=== PATIENT | female | born 1980 | race African-American/Black ===

== ENCOUNTER 2018-09-19 16:21 | Inpatient (IN) | payer OTHER ==
[~2018-09-19] VITALS: Ht 162.6 cm; Wt 76.7 kg
--- NOTE | 2018-09-19 16:24 | Emergency Room Report ---
History of Present Illness General Chief Complaint: Chest Pain Source: Patient, EMS Present Illness HPI Patient is a 38-year-old female brought in by EMS after increased pain to her [facility] site. Patient a prior history of end-stage renal disease and is currently residing at a facility. Patient had patient was sent in from facility. Previous history of end-stage renal disease. Patient reports being an uric. Allergies: Coded Allergies: No Known Allergies (Unverified , 09/19/18) Patient History Past Medical History: see triage record Reviewed Nursing Documentation: PMH: Agreed; PSxH: Agreed Review of Systems All Other Systems: negative except mentioned in HPI Physical Exam Vital Signs Date Time Temp Pulse Resp B/P (MAP) Pulse Ox O2 Delivery O2 Flow Rate FiO2 09/19/18 16:17 98.6 86 18 160/82 98 Room Air Sp02 EP Interpretation: reviewed, normal General Appearance: normal inspection, well appearing, no apparent distress, alert, GCS 15 Head: atraumatic ENT: normal ENT inspection, hearing grossly normal, normal voice Neck: normal inspection, full range of motion, supple, no bony tend Respiratory: normal inspection, lungs clear, normal breath sounds, no respiratory distress, no retraction, no wheezing Cardiovascular #1: regular rate, rhythm, no edema Gastrointestinal: normal inspection, normal bowel sounds, non tender, soft, no guarding, no hernia Genitourinary: no CVA tenderness Musculoskeletal: normal inspection, back normal, normal range of motion Neurologic: normal inspection, alert, oriented x3, responsive, programming specialist III-XII nml as tested, speech normal Psychiatric: normal inspection, judgement/insight normal, mood/affect normal Skin: normal inspection, normal color, no rash Medical Decision Making Diagnostic Impression: Primary Impression: Chest pain Additional Impression: ESRD (end stage renal disease) ER Course Patient presented for chest pain. Differential diagnosis included but was not limited to acute coronary syndrome, pulmonary embolism, pneumonia, aortic dissection, shingles, pneumothorax, aortic dissection, esophageal rupture, pericarditis. EKG interpreted by me showed normal sinus rhythm with a rate of [address] or T wave changes.Low voltage. [facility] for inpatient management due to covering physician Labs Test 09/19/18 17:00 09/19/18 18:15 White Blood Count 9.9 K/UL (4.8-10.8) Red Blood Count 4.31 M/UL (4.20-5.40) Hemoglobin 11.3 G/DL (12.0-16.0) Hematocrit 36.0 % (37.0-47.0) Mean Corpuscular Volume 84 FL (80-99) Mean Corpuscular Hemoglobin 26.2 PG (27.0-31.0) Mean Corpuscular Hemoglobin Concent 31.3 G/DL (32.0-36.0) Red Cell Distribution Width 16.3 % (11.6-14.8) Platelet Count 179 K/UL (150-450) Mean Platelet Volume 7.0 FL (6.5-10.1) Neutrophils (%) (Auto) 76.5 % (45.0-75.0) Lymphocytes (%) (Auto) 10.4 % (20.0-45.0) Monocytes (%) (Auto) 6.8 % (1.0-10.0) Eosinophils (%) (Auto) 2.0 % (0.0-3.0) Basophils (%) (Auto) 4.3 % (0.0-2.0) Sodium Level 132 MMOL/L (136-145) Potassium Level 5.0 MMOL/L (3.5-5.1) Chloride Level 96 MMOL/L (98-107) Carbon Dioxide Level 23 MMOL/L (21-32) Anion Gap 14 mmol/L (5-15) Blood Urea Nitrogen 58 mg/dL (7-18) Creatinine 5.9 MG/DL (0.55-1.30) Estimat Glomerular Filtration Rate 9.6 mL/min (>60) Glucose Level 285 MG/DL (74-106) Calcium Level 9.3 MG/DL (8.5-10.1) Total Bilirubin 0.9 MG/DL (0.2-1.0) Aspartate Amino Transf (AST/SGOT) 32 U/L (15-37) Alanine Aminotransferase (ALT/SGPT) 45 U/L (12-78) Alkaline Phosphatase 275 U/L (46-116) Total Creatine Kinase 41 U/L (26-308) Creatine Kinase MB 1.9 NG/ML (0.0-3.6) Creatine Kinase MB Relative Index 4.6 Troponin I 0.000 ng/mL (0.000-0.056) Total Protein 8.5 G/DL (6.4-8.2) Albumin 3.3 G/DL (3.4-5.0) Globulin 5.2 g/dL Albumin/Globulin Ratio 0.6 (1.0-2.7) EKG Diagnostic Results Rate: normal Rhythm: NSR ST Segments: no acute changes Last Vital Signs Date Time Temp Pulse Resp B/P (MAP) Pulse Ox O2 Delivery O2 Flow Rate FiO2 09/19/18 16:17 98.6 86 18 160/82 98 Room Air Status: unchanged Disposition: ADMITTED INPATIENT Valentin Valenzuela MD Sep 19, 2018 16:24
[2018-09-19 16:30] VITALS: BP 132/76
--- NOTE | 2018-09-19 16:30 | NUR ---
ED Nurse Note: Pt brought in to ER by ambulance from [facility] due to Lt chest pain related to dialysis catheter. pt aao x4 and calm and cooperative but drowsy. Pt has dialysis catheter on Lt upper chest. pt gets dialysis every ,, and last dialysis was Thursday. pt reported that catheter site pain radiates to Rt breast. skin clean and intact but dry.
[2018-09-19] MEDS ORDERED: BENADRYL25 M3 PO (17:04)
[2018-09-19] MEDS ORDERED: ELIQUIS5 MG PO (17:04)
[2018-09-19] MEDS ORDERED: NORVASC10 MG ORAL (17:04)
[2018-09-19] MEDS ORDERED: DOCUSATE SODIU100 M2 ORAL (17:04)
[2018-09-19] MEDS ORDERED: ACETAMINOPHEN-1 EAC1 ORAL (17:04)
[2018-09-19] MEDS ORDERED: GLUCAGON W/DILUE1 MG PO (17:04)
[2018-09-19] MEDS ORDERED: AMBIEN10 M1 ORAL (17:04)
[2018-09-19] MEDS ORDERED: LEVEMIR FL100 UNIT/2 SQ (17:04)
[2018-09-19] MEDS ORDERED: MINOXIDIL10 MG PO (17:04)
[2018-09-19] MEDS ORDERED: KEPPRA500 M4 ORAL (17:04)
[2018-09-19] MEDS ORDERED: LEVOTHYROXINE175 MCG ORAL (17:04)
[2018-09-19] MEDS ORDERED: PEPCID AC20 M2 PO (17:04)
[2018-09-19] MEDS ORDERED: NORMODYNE200 MG ORAL (17:04)
[2018-09-19] MEDS ORDERED: COMPAZINE10 M2 PO (17:04)
[2018-09-19] MEDS ORDERED: NORCO 10-325 T1 EACH ORAL (17:04)
[2018-09-19] MEDS ORDERED: SERTRALINE HCL50 MG ORAL (17:04)
[2018-09-19] MEDS ORDERED: TYLENOL325 MG ORAL (17:04)
[2018-09-19] MEDS ORDERED: APRESOLINE50 MG ORAL (17:04)
[2018-09-19] MEDS ORDERED: VITAMIN C PO (17:04)
[2018-09-19] MEDS ORDERED: DIOVAN80 MG ORAL (17:04)
[2018-09-19 17:20] LABS: BASOPHILS % (AUTO) 4.3 % (0.0-2.0); HEMOGLOBIN 11.3 G/DL (12.0-16.0); LYMPHOCYTES % (AUTO) 10.4 % (20.0-45.0); MEAN CORPUSCULAR VOLUME 84 FL (80-99); MONOCYTES % (AUTO) 6.8 % (1.0-10.0); NEUTROPHILS % (AUTO) 76.5 % (45.0-75.0); PLATELET COUNT 179 K/UL (150-450); RED BLOOD COUNT 4.31 M/UL (4.20-5.40); RED CELL DISTRIBUTION WIDTH 16.3 % (11.6-14.8); WHITE BLOOD COUNT 9.9 K/UL (4.8-10.8)
[2018-09-19 17:30] VITALS: BP 165/81
[2018-09-19] MEDS ORDERED: BENADRYL50 MG ORAL (18:11)
[2018-09-19] MEDS ORDERED: DULCOLAX10 MG RC (18:11)
[2018-09-19] MEDS ORDERED: PRO-STAT LIQUID30 ML ORAL (18:17)
[2018-09-19] MEDS ORDERED: SYNTHROID150 MCG ORAL (18:17)
[2018-09-19] MEDS ORDERED: NEPHROVITE1 TAB ORAL (18:17)
[2018-09-19] MEDS ORDERED: TYLENOL EXTRA500 MG ORAL (18:23)
[2018-09-19] MEDS ORDERED: VITAMIN C500 M1 ORAL (18:24)
[2018-09-19] MEDS ORDERED: DIOVAN160 MG ORAL (18:24)
[2018-09-19 18:30] VITALS: BP 150/86
--- NOTE | 2018-09-19 19:06 | NUR ---
HAND-OFF: Report given to LEATHA Perez. no orders to carry at this time.
[2018-09-19 19:18] LABS: ANION GAP 14 mmol/L (5-15); BLOOD UREA NITROGEN 58 mg/dL (7-18); CALCIUM 9.3 MG/DL (8.5-10.1); CARBON DIOXIDE 23 MMOL/L (21-32); CHLORIDE 96 MMOL/L (98-107); CREATININE 5.9 MG/DL (0.55-1.30); SODIUM 132 MMOL/L (136-145)
[2018-09-19 19:31] LABS: ALANINE AMINOTRANSFERASE 45 U/L (12-78); ALBUMIN 3.3 G/DL (3.4-5.0); ALBUMIN/GLOBULIN RATIO 0.6 (1.0-2.7); ALKALINE PHOSPHATASE 275 U/L (46-116); ASPARTATE AMINO TRANSFERASE 32 U/L (15-37); BILIRUBIN,TOTAL 0.9 MG/DL (0.2-1.0); CKMB 1.9 NG/ML (0.0-3.6); CREATINE KINASE 41 U/L (26-308)
--- NOTE | 2018-09-19 20:00 | NUR ---
ER Nurse Note: Pt a&ox4, VSS, no signs of distress. Pt is on 2L NC with 98%. Pt frequently takes off NC and O2 at 92% to 94%. Pt has dialysis cath on left upper chest; dressed and covered prior admission. Pt able to turn, skin intact. All orders completed per ERMD orders. All safety measures met; will continue to montior.
[2018-09-19 21:20] VITALS: BP 148/74
--- NOTE | 2018-09-19 21:53 | NUR ---
ER Nurse Note: Tried to give report twice; was told that LEATHA Cummings will call back. Gave report to LEATHA Cummings in tele for continuity of care. Pt a&ox4, VSS, no signs of distress. Left with all belonings.
[2018-09-19 22:30] VITALS: BP 158/79
--- NOTE | 2018-09-19 22:56 | NUR ---
NURSE NOTES: Called and left a message with on-call MD, Arline Figueroa, regarding admission orders. Awaiting call back.
[2018-09-19] MEDS ORDERED: Glucagon 1mg Inj SUBQ PRN (23:15)
[2018-09-19] MEDS ORDERED: Zolpidem 5mg tab ORAL PRN (23:15)
[2018-09-19] MEDS ORDERED: Tylenol #3 tab (300mg/30mg) ORAL PRN (23:15)
[2018-09-19] MEDS ORDERED: HYDROcodone/Acetamin 10/325 tab ORAL PRN (23:15)
[2018-09-19] MEDS ORDERED: Acetaminophen 500mg (ES) tab ORAL PRN (23:15)
[2018-09-19] MEDS: Morphine Sulfate 2mg/ml Inj(IV/IM USE ONLY) IVP PRN (23:43)
[2018-09-20] VITALS: BP 157/78
--- NOTE | 2018-09-20 04:09 | NUR ---
NURSE NOTES: Called and left a message with Dr. Figueroa regarding pts request for cough meds. Awaiting call back.
[2018-09-20] MEDS: Morphine Sulfate 2mg/ml Inj(IV/IM USE ONLY) IVP PRN ×2 (05:45→21:00)
[2018-09-20] MEDS ORDERED: Tylenol #3 tab (300mg/30mg) ORAL PRN (06:30)
[2018-09-20] MEDS ORDERED: Morphine Sulfate 2mg/ml Inj(IV/IM USE ONLY) IVP PRN (06:30)
--- NOTE | 2018-09-20 07:47 | NUR ---
HAND-OFF: Report given to LEATHA Riley. Pt stable.
--- NOTE | 2018-09-20 07:48 | NUR ---
NURSE NOTES: Pt received from LEATHA Cummings alert and oriented x3 with no acute s/s of distress. IV site asymptomatic and patent. Bed in lowest position, call light and belongings within reach.
[2018-09-20 08:00] VITALS: BP 146/73
--- NOTE | 2018-09-20 08:56 | History and Physical ---
History of Present Illness General Date patient seen: Sep 20, 2018 Reason for Hospitalization: cough, body pain, s/p cva left weakness Present Illness Allergies: Coded Allergies: No Known Allergies (Unverified , 09/19/18) Medication History Scheduled Amino Acids/Protein Hydrolys (Pro-Stat Liquid), 30 ML ORAL TWICE A DAY, ( Reported) Amlodipine Besylate (Norvasc), 10 MG ORAL DAILY, (Reported) Apixaban (Eliquis), 5 MG PO BID, (Reported) Ascorbic Acid* (Vitamin C*), 500 MG ORAL DAILY, (Reported) Docusate Sodium (Docusate Sodium), 100 MG ORAL DAILY, (Reported) Famotidine (Pepcid Ac), 20 MG PO QOD, (Reported) Hydralazine HCl (Hydralazine HCl), 50 MG ORAL TID, (Reported) Insulin Detemir (Levemir Flextouch), 10 UNITS SQ DAILY, (Reported) Labetalol HCl (Labetalol HCl), 200 MG ORAL BID, (Reported) Levetiracetam (Keppra), 500 MG ORAL BID, (Reported) Levothyroxine Sodium* (Synthroid*), 150 MCG ORAL BEFORE BREAKFAST, (Reported) Minoxidil* (Loniten*), 10 MG PO BID, (Reported) Sertraline Hcl* (Zoloft*), 50 MG ORAL DAILY, (Reported) Valsartan (Diovan), 160 MG ORAL DAILY, (Reported) Vitamin B Cmplx/Vit C/Folic AC (Nephro-Kamron Tablet), 1 TAB ORAL DAILY, (Reported ) Scheduled PRN Acetaminophen (Tylenol), 650 MG ORAL Q6H PRN for Mild Pain (Pain Scale 1-3), ( Reported) Acetaminophen With Codeine (T#3) (Tylenol #3 Tab*), 1 TAB ORAL Q4H PRN for Severe Pain (Pain Scale 7-10), (Reported) Acetaminophen* (Tylenol Extra Strength*), 1,000 MG ORAL Q6H PRN for Moderate Pain (Pain Scale 4-6), (Reported) Bisacodyl (Dulcolax), 10 MG RC DAILY PRN for Constipation, (Reported) Diphenhydramine HCl (Diphenhydramine HCl), 50 MG ORAL Q6H PRN for Itching, ( Reported) Glucagon (Glucagen), 1 MG PO ONCE PRN for hypoglycemia, (Reported) Hydrocodone Bit/Acetaminophen 10-325* (Largo 10-325*), 1 TAB ORAL Q6H PRN for Severe Pain (Pain Scale 7-10), (Reported) Zolpidem Tartrate* (Ambien*), 10 MG ORAL HS PRN for Insomnia, (Reported) Discontinued Medications Diphenhydramine HCl (Benadryl), 50 MG PO, (Reported) Discontinued Reason: Prescription changed Prochlorperazine Maleate (Compazine), 10 MG PO, (Reported) Discontinued Reason: MD discontinued med Medications Narrative 38 y/o AA female with ESRD, sent to er for not feeling well, c/o new cough, pain at permacath site, total body pain. Pt. has been on vanco in HD unit for ? reason. Today she feels weak, crying from pain, says has severe non relenting cough, weakness fifi in left side x 1 year after told had cva. She is planned to have HD this am per her regular schedule Patient History History Provided By: Patient Healthcare decision maker Aunt Resuscitation status Full Code Advanced Directive on File Review of Systems Constitutional: Reports: malaise, weakness Eye: Reports: tearing ENT: Denies: no symptoms, see HPI, ear pain, ear discharge, nose pain, nose congestion, throat pain, throat swelling, mouth pain, hearing loss, nasal discharge, other Respiratory: Reports: cough Cardiovascular: Denies: no symptoms, see HPI, chest pain, edema, palpitations, syncope, PND, other Gastrointestinal: Denies: no symptoms, see HPI, abdominal pain, constipation, diarrhea, nausea, vomiting, melena, hematemesis, other Musculoskeletal: Reports: back pain, joint pain Skin: Denies: no symptoms, see HPI, rash, change in color, change in hair/nails , dryness, lesions, other Psychiatric: Denies: no symptoms, see HPI, prior hx, anxiety, depressed feelings, emotional problems, SI, HI, hallucinations, other Neurological: Denies: no symptoms, see HPI, headache, numbness, paresthesia, seizure, tingling, tremors, focal weakness, syncope, dizziness, other Endocrine: Denies: no symptoms, see HPI, excessive sweating, flushing, intolerance to temperature, increased thirst, increased urine, unexplained weight loss, other Physical Exam General Appearance: WD/WN, alert, mild distress, obese Lines, tubes and drains: dialysis access HEENT: normocephalic, atraumatic, anicteric, mucous membranes moist, PERRL, carotid(s) normal Neck: non-tender Respiratory/Chest: lungs clear Cardiovascular/Chest: normal peripheral pulses, normal rate Abdomen: normal bowel sounds, decreased bowel sounds Neurologic: technical services specialist II-XII grossly normal, alert, motor weakness - left UE Musculoskeletal: normal muscle bulk Last 24 Hour Vital Signs Date Time Temp Pulse Resp B/P (MAP) Pulse Ox O2 Delivery O2 Flow Rate FiO2 09/20/18 04:00 85 09/20/18 00:49 Nasal Cannula 2.0 09/20/18 00:00 78 09/20/18 00:00 98.1 80 18 157/78 (104) 98 09/19/18 22:30 97.9 81 18 158/79 (105) 97 09/19/18 22:00 98.1 78 18 148/74 98 Room Air 2.0 09/19/18 21:20 98.1 78 18 148/74 98 Room Air 09/19/18 18:30 98.0 77 15 150/86 95 Room Air 09/19/18 17:30 98.4 79 17 165/81 97 Nasal Cannula 2.0 09/19/18 16:30 86 18 Room Air 09/19/18 16:30 98.6 81 14 132/76 95 Nasal Cannula 2.0 09/19/18 16:17 98.6 86 18 160/82 98 Room Air Intake and Output 09/19/18 09/20/18 19:00 07:00 Intake Total 0 ml Output Total 0 ml Balance 0 ml 0 ml Intake Oral 0 ml Output Urine Total 0 ml Laboratory Tests Test 09/19/18 17:00 09/19/18 18:15 09/20/18 03:50 White Blood Count 9.9 K/UL (4.8-10.8) Red Blood Count 4.31 M/UL (4.20-5.40) Hemoglobin 11.3 G/DL (12.0-16.0) L Hematocrit 36.0 % (37.0-47.0) L Mean Corpuscular Volume 84 FL (80-99) Mean Corpuscular Hemoglobin 26.2 PG (27.0-31.0) L Mean Corpuscular Hemoglobin Concent 31.3 G/DL (32.0-36.0) L Red Cell Distribution Width 16.3 % (11.6-14.8) H Platelet Count 179 K/UL (150-450) Mean Platelet Volume 7.0 FL (6.5-10.1) Neutrophils (%) (Auto) 76.5 % (45.0-75.0) H Lymphocytes (%) (Auto) 10.4 % (20.0-45.0) L Monocytes (%) (Auto) 6.8 % (1.0-10.0) Eosinophils (%) (Auto) 2.0 % (0.0-3.0) Basophils (%) (Auto) 4.3 % (0.0-2.0) H Sodium Level 132 MMOL/L (136-145) L Potassium Level 5.0 MMOL/L (3.5-5.1) Chloride Level 96 MMOL/L (98-107) L Carbon Dioxide Level 23 MMOL/L (21-32) Anion Gap 14 mmol/L (5-15) Blood Urea Nitrogen 58 mg/dL (7-18) H Creatinine 5.9 MG/DL (0.55-1.30) H Estimat Glomerular Filtration Rate 9.6 mL/min (>60) Glucose Level 285 MG/DL (74-106) H Calcium Level 9.3 MG/DL (8.5-10.1) Total Bilirubin 0.9 MG/DL (0.2-1.0) Aspartate Amino Transf (AST/SGOT) 32 U/L (15-37) Alanine Aminotransferase (ALT/SGPT) 45 U/L (12-78) Alkaline Phosphatase 275 U/L (46-116) H Total Creatine Kinase 41 U/L (26-308) Creatine Kinase MB 1.9 NG/ML (0.0-3.6) Creatine Kinase MB Relative Index 4.6 Troponin I 0.000 ng/mL (0.000-0.056) 0.000 ng/mL (0.000-0.056) Total Protein 8.5 G/DL (6.4-8.2) H Albumin 3.3 G/DL (3.4-5.0) L Globulin 5.2 g/dL Albumin/Globulin Ratio 0.6 (1.0-2.7) L Height (Feet): 5 Height (Inches): 4.00 Weight (Pounds): 155 Medications Current Medications Medications (Trade) Dose Ordered Sig/Lior Route PRN Reason Start Time Stop Time Status Last Admin Dose Admin Acetaminophen (Tylenol) 650 mg Q6H PRN ORAL Headache/T>100.5 09/20/18 06:45 10/19/18 23:14 Acetaminophen/ Codeine Phosphate (Tylenol #3) 1 tab Q4H PRN ORAL Mild Pain (Pain Scale 1-3) 09/20/18 06:30 09/26/18 23:14 Acetaminophen/ Hydrocodone Bitart (Largo 10/325) 1 tab Q6H PRN ORAL Moderate Pain (Pain Scale 4-6) 09/19/18 23:15 09/26/18 23:14 Amlodipine Besylate (Norvasc) 10 mg DAILY ORAL 09/20/18 09:00 10/20/18 08:59 Apixaban (Eliquis) 5 mg BID ORAL 09/20/18 09:00 10/20/18 08:59 Ascorbic Acid (Vitamin C) 500 mg DAILY ORAL 09/20/18 09:00 10/20/18 08:59 Bisacodyl (Dulcolax) 10 mg DAILY PRN RECTAL Constipation 09/19/18 23:15 10/19/18 23:14 Diphenhydramine HCl (Benadryl) 50 mg Q6H PRN ORAL Itching 09/19/18 23:15 10/19/18 23:14 09/19/18 23:43 Docusate Sodium (Colace) 100 mg DAILY ORAL 09/20/18 09:00 10/20/18 08:59 Famotidine (Pepcid) 20 mg QOD ORAL 09/21/18 09:00 10/21/18 08:59 Glucagon (Glucagon) 1 mg NEEDED PRN SUBQ hypoglycemia 09/19/18 23:15 10/19/18 23:14 Hydralazine HCl (Apresoline) 50 mg TID ORAL 09/20/18 09:00 10/20/18 08:59 Insulin Detemir (Levemir) 10 units DAILY SUBQ 09/20/18 09:00 10/20/18 08:59 Labetalol HCl (Normodyne) 200 mg BID ORAL 09/20/18 09:00 10/20/18 08:59 Levetiracetam (Keppra) 500 mg BID ORAL 09/20/18 09:00 10/20/18 08:59 Levothyroxine Sodium (Synthroid) 150 mcg BEFORE BREAKFAST ORAL 09/20/18 06:30 10/20/18 06:29 09/20/18 05:45 Minoxidil (Loniten) 10 mg BID ORAL 09/20/18 09:00 10/20/18 08:59 Morphine Sulfate (Morphine Sulfate) 2 mg Q4H PRN IVP Severe Pain (Pain Scale 7-10) 09/20/18 06:30 09/26/18 23:14 Sertraline HCl (Zoloft) 50 mg DAILY ORAL 09/20/18 09:00 10/20/18 08:59 Vitamin B Complex/ Vit C/Folic Acid (Nephrovite) 1 tab DAILY ORAL 09/20/18 09:00 10/20/18 08:59 Zolpidem Tartrate (Ambien) 5 mg BEDTIME PRN ORAL Insomnia 09/19/18 23:15 09/26/18 23:14 Assessment/Plan Problem List: (1) HTN (hypertension) Assessment & Plan: - restart bp meds, hd to get uf and watch ICD Codes: I10 - Essential (primary) hypertension SNOMED: 21404604 (2) Cough Assessment & Plan: -cxr now, Robitussin for now, ? if has pneumonia with nl wbc after given vanco on thursday. ICD Codes: R05 - Cough SNOMED: 65201256 (3) DM2 (diabetes mellitus, type 2) Assessment & Plan: -follow bs with ssi ICD Codes: E11.9 - Type 2 diabetes mellitus without complications SNOMED: 07112442 (4) Total body pain Assessment & Plan: -resume norco, poss has djd and ? post cva, will get records and speak to family ICD Codes: R52 - Pain, unspecified SNOMED: 749186501 (5) Anemia Assessment & Plan: -sec to ESRD, plan epogen prn with hd ICD Codes: D64.9 - Anemia, unspecified SNOMED: 208734053 (6) ESRD (end stage renal disease) Assessment & Plan: - plan hd m/w/f -watch volume lytes -adjust meds to lower crcl ICD Codes: N18.6 - End stage renal disease SNOMED: 06198365 Status: Jake Grey M.D. Sep 20, 2018 08:56
[2018-09-20] MEDS ORDERED: guaiFENesin 100mg/5ml Liq ud ORAL PRN (09:00)
[2018-09-20] MEDS: Nephrovite tab (Rena-Vite) ORAL SCH (09:26)
[2018-09-20] MEDS: Docusate 100mg cap ORAL SCH (09:27)
[2018-09-20] MEDS: Sertraline 50mg tab ORAL SCH (09:27)
[2018-09-20] MEDS: Ascorbic Acid 500mg tab ORAL SCH (09:27)
[2018-09-20] MEDS: Minoxidil 10mg tab ORAL SCH ×2 (09:27→17:11)
[2018-09-20] MEDS: HydrALAZINE 50mg tab ORAL SCH ×3 (09:28→17:10)
[2018-09-20] MEDS: Eliquis 2.5mg tablet ORAL SCH ×2 (09:28→17:10)
[2018-09-20] MEDS: Labetalol 200mg tab ORAL SCH ×2 (09:28→17:11)
[2018-09-20] MEDS: Levemir Flexpen SUBQ SCH (09:33)
--- NOTE | 2018-09-20 09:54 | NUR ---
NURSE NOTES: Per Dr. Mullins, pt is scheduled for HD today at 04/08 in the AM with [facility]. RN spoke with Gel from [facility] to confirm HD, currently awaiting call back from HD nurse.
--- NOTE | 2018-09-20 09:59 | NUR ---
RADIOLOGY DEPT., CHEST X-RAY PERFORMED ON ADMIT FROM ER.-P.DYE
[2018-09-20 12:00] VITALS: BP 122/54
--- NOTE | 2018-09-20 12:16 | Diagnostic Imaging Report ---
Indication: Chest pain Technique: One view of the chest Comparison: none Findings: Left chest tunneled dialysis catheter is demonstrated. There is evidence of a large left pleural effusion. There is bilateral interstitial and airspace edema. The heart size is difficult to assess, probably enlarged. Left axillary vascular stents are noted Impression: Cardiomegaly. Probable congestive heart failure and large left pleural effusion This agrees with the preliminary interpretation provided overnight by [facility] teleradiology service.
--- NOTE | 2018-09-20 13:39 | NUR ---
*-* INSURANCE *-* ALL CLINICALS HAVE BEEN FAXED [facility] [phone] Fax for Clinicals [phone] Fax for Discharge Summary *-* BAR NOTES ; COURT STENOGRAPHER ZACK Olson AND HE GAVE AUTH TO ADMIT THE PT AUTH# [id number] FAX F/S AND ED NOTES [phone]
--- NOTE | 2018-09-20 15:37 | NUR ---
CASE MANAGEMENT:REVIEW 38 YR OLD FEMALE BIBA FROM [facility] CC: LT CHEST PAIN WHERE DIALYSIS ACCESS IS LOCATED SI:CHEST PAIN 98.6 86 18 160/82 98% ON RA TROPONIN(-) BUN+58 CR+5.9 IS: CHEST XRAY : TO TELEMETRY IS: IV MORPHINE Q4HRS PRN LEVAQUIN PO QD ELIQUIS PO BID MINOXIDIL PO BID KEPPRA PO BID LABETALOL PO BID HYDRALAZINE PO TID NORVASC PO QD
[2018-09-20 16:00] VITALS: BP 124/61
--- NOTE | 2018-09-20 16:45 | NUR ---
NURSE NOTES: Endorsed to Dr. Mullins that pt is asking for Benadryl IVP PRN since her PO med does not work effectively, per the patient. Per Dr. Mullins - Benadryl 25 mg IVP PRN q6h for itching. Will carry out orders.
[2018-09-20] MEDS: DiphenhydrAMINE 50mg/ml Inj IVP PRN (17:09)
--- NOTE | 2018-09-20 19:15 | NUR ---
HAND-OFF: Report given to LEATHA Del Real. No acute s/s of distress.
--- NOTE | 2018-09-20 19:30 | NUR ---
NURSE NOTES: Report received from Yokasta Chaudhari RN. Pt is resting in bed in stable condition. Pt is awake, alert, and oriented x4. Pt is on 2L O2 via nasal cannula and breathing is even and unlabored. No acute distress noted. IV site is L EJ #18g and is asymptomatic, patent, and intact. Bed is in lowest position with brake engaged, side rails up x3, and bed alarm on. Call light and side table are placed within reach. Will continue to monitor.
--- NOTE | 2018-09-20 19:39 | Cardiology Report ---
APPROVED REPORT EKG Measurement Heart [id number] Normal sinus rhythm Rightward axis Low voltage QRS Borderline ECG
[2018-09-20 20:00] VITALS: BP 124/57
--- NOTE | 2018-09-20 21:11 | NUR ---
NURSE NOTES: Pt's blood sugar noted to be 479. MD Mullins notified. Per , place order for novolog moderate sliding scale coverage per protocol. Orders noted and carried out.
[2018-09-20] MEDS: NovoLOG Insulin Flexpen SUBQ SCH (21:52)
[2018-09-21] VITALS: BP 122/59
[2018-09-21] MEDS: DiphenhydrAMINE 50mg/ml Inj IVP PRN ×2 (01:12→09:01)
[2018-09-21 04:00] VITALS: BP 122/63
[2018-09-21] MEDS: NovoLOG Insulin Flexpen SUBQ SCH ×2 (05:44→11:30)
--- NOTE | 2018-09-21 06:04 | NUR ---
NURSE NOTES: Pt refusing labs this AM. Will have forestry farm laborer attempt again at a later time.
[2018-09-21] MEDS ORDERED: NovoLOG Insulin Flexpen SUBQ SCH (06:30)
--- NOTE | 2018-09-21 07:21 | NUR ---
HAND-OFF: Report given to Yokasta Chaudhari RN. Pt is resting in bed in stable condition. No acute distress noted. Endorsed plan of care.
--- NOTE | 2018-09-21 07:22 | NUR ---
NURSE NOTES: Pt received from LEATHA Del Real alert and oriented x4 with no acute s/s of distress. IV site asymptomatic and patent, on saline lock. Bed in lowest position, call light and belongings within reach.
[2018-09-21 08:00] VITALS: BP 117/65
[2018-09-21] MEDS: Sertraline 50mg tab ORAL SCH (08:41)
[2018-09-21] MEDS: Nephrovite tab (Rena-Vite) ORAL SCH (08:41)
[2018-09-21] MEDS: Ascorbic Acid 500mg tab ORAL SCH (08:41)
[2018-09-21] MEDS: Eliquis 2.5mg tablet ORAL SCH (08:41)
[2018-09-21] MEDS: Labetalol 200mg tab ORAL SCH (08:42)
[2018-09-21] MEDS: Minoxidil 10mg tab ORAL SCH (08:42)
[2018-09-21] MEDS: Docusate 100mg cap ORAL SCH (08:42)
[2018-09-21] MEDS: HydrALAZINE 50mg tab ORAL SCH ×2 (08:42→13:00)
[2018-09-21] MEDS: Levemir Flexpen SUBQ SCH (08:52)
[2018-09-21] MEDS: Morphine Sulfate 2mg/ml Inj(IV/IM USE ONLY) IVP PRN (09:01)
--- NOTE | 2018-09-21 10:17 | NUR ---
DISCHARGE PLANNING DISCHARGE ORDER NOTED FAXED CLINICALS TO [facility] T: [phone] AWAIT ACCEPTANCE AND ASSIGNED ROOM NUMBER
[2018-09-21 10:22] LABS: BASOPHILS % (AUTO) 2.5 % (0.0-2.0); EOSINOPHILS % (AUTO) 10.6 % (0.0-3.0); HEMATOCRIT 35.6 % (37.0-47.0); HEMOGLOBIN 10.6 G/DL (12.0-16.0); LYMPHOCYTES % (AUTO) 7.3 % (20.0-45.0); MEAN CORPUSCULAR VOLUME 84 FL (80-99); MONOCYTES % (AUTO) 9.4 % (1.0-10.0); NEUTROPHILS % (AUTO) 70.2 % (45.0-75.0); PLATELET COUNT 234 K/UL (150-450); RED BLOOD COUNT 4.23 M/UL (4.20-5.40); RED CELL DISTRIBUTION WIDTH 16.5 % (11.6-14.8); WHITE BLOOD COUNT 9.2 K/UL (4.8-10.8)
[2018-09-21 10:48] LABS: ANION GAP 11 mmol/L (5-15); BLOOD UREA NITROGEN 49 mg/dL (7-18); CALCIUM 8.7 MG/DL (8.5-10.1); CARBON DIOXIDE 26 MMOL/L (21-32); CHLORIDE 96 MMOL/L (98-107); CREATININE 5.8 MG/DL (0.55-1.30); PHOSPHORUS 4.1 MG/DL (2.5-4.9); POTASSIUM 4.6 MMOL/L (3.5-5.1); SODIUM 132 MMOL/L (136-145)
--- NOTE | 2018-09-21 11:40 | NUR ---
DISCHARGE PLANNED PATIENT WILL RETURN TO [facility] ROOM 61 SKILLED T:[phone] FOR NURSE TO NURSE REPORT [facility] AUTH #[id number] [facility] HAS BEEN ARRANGED FOR [address] [employer]
[2018-09-21 12:00] VITALS: BP 101/50
--- NOTE | 2018-09-21 13:55 | NUR ---
NURSE NOTES: Pt discharged to SNF with SNF meds per Dr. Mullins's orders. RN gave report and endorsed discharge and medication information to Maria Eugenia from [facility] (Room 6A). IV site d/manuelito and wristband removed. Belongings signed by patient upon discharge. Pt left in safe condition - no wounds upon discharge. Pt has left permacath in upper chest for dialysis. Pt picked up by [facility] at 1355.
--- NOTE | 2018-09-21 14:49 | NUR ---
*-* INSURANCE *-* ALL CLINICALS AND REVIEWS HAVE BEEN FAXED TO: [facility] P- [phone] F- [phone]....
--- NOTE | 2018-09-23 09:48 | Discharge Summary ---
Discharge Summary Discharge Summary _ DATE OF ADMISSION: 09/19/2018 DATE OF DISCHARGE: 09/21/2018 DISCHARGED BY: Dr Mullins REASON FOR ADMISSION: 38 years old female with past medical history of end-stage renal disease, on hemodialysis, diabetes mellitus, status post CVA with left-sided weakness , [facility], brought due to cough and body pains for evaluation. Upon evaluation blood pressure was 160/82, otherwise vital signs were stable. Laboratory workup revealed no leukocytosis, hemoglobin 11.3, hematocrit 36. Sodium 132, potassium 5.0. BUN 58, creatinine 5.9, consistent with known history of end-stage renal disease. Glucose 285. Stable LFT. CK 41. Troponin negative. EKG revealed normal sinus rhythm, no acute ischemic changes. Albumin 3.3. Chest x-ray revealed cardiomegaly, possible congestive heart failure and left pleural effusion. Patient admitted to telemetry floor. HOSPITAL COURSE: Patient admitted to telemetry floor. Serial troponin were negative. EKG revealed normal sinus rhythm, no acute ischemic changes. Telemetry revealed no acute ischemic changes. Patient was ruled out for acute myocardial infarction. Supplemental oxygen was on board as needed to keep pulse oximetry above 92%. Pulmonary toilet provided as needed. Patient started on empiric antibiotic. Antitussive provided as needed. Chest x-ray revealed no evidence of acute cardiopulmonary pathology. Supportive care provided. Hemodialysis provided while in the hospital with close monitoring of volumes and renal parameters. Blood sugar was managed with long-acting insulin and sliding scale of short acting insulin was provided as needed. GI prophylaxis provided Blood pressure was managed with multiply antihypertensive medications, including calcium channel brooke, beta-brooke, hydralazine and minoxidil. Patient was continue on anticoagulation with Eliquis. Pain management was addressed, possible DJD . Pain was eventually controlled Seizure precaution maintained. Keppra continued. Hemoglobin and hematocrit were closely monitored with goal to keep hemoglobin above 7, remained at the baseline. Prior to discharge hemoglobin 10.6, hematocrit 35.6. Bowel regimen instituted. Supportive care provided. Patient remained afebrile, no leukocytosis, Stable hemodynamic status. Patient was stable for transfer back to [facility] for continuation of care FINAL DIAGNOSES: End-stage renal disease on hemodialysis Hypertension Cough Total body pain Diabetes mellitus type 2 Anemia DISCHARGE MEDICATIONS: See Medication Reconciliation list. DISCHARGE INSTRUCTIONS: [facility] Follow up with medical doctor at the facility. I have been assigned to dictate discharge summary for this account. I was not involved in the patient's management. Melanie Robb NP Sep 23, 2018 09:48
== END 2018-09-21 13:55 | DRG 470 ==
LOC: EDBD 16:21 → EMR 16:39 → 2E 18:00 → EDBEDREQ 20:45
PROC: 5A1D70Z Performance of Urinary Filtration, Intermittent, Less than 6 Hours Per Day (ICD-10-PCS; principal; 2018-09-20)
DX: I12.0 Hypertensive chronic kidney disease with stage 5 chronic kidney disease or end stage renal disease (principal); E11.22 Type 2 diabetes mellitus with diabetic chronic kidney disease; N18.6 End stage renal disease; R05 Cough; D64.9 Anemia, unspecified; R52 Pain, unspecified; Z99.2 Dependence on renal dialysis; I69.354 Hemiplegia and hemiparesis following cerebral infarction affecting left non-dominant side
CPT/HCPCS: 36415; 71045; 80048; 80053; 80299; 82550; 82553; 82962; 83036; 83735; 84100; 84443; 84484; 85025; 87081; 93005; 99285; J1815; S5561